=== PATIENT | male | born 1970 | race Caucasian/White ===

== ENCOUNTER 2017-06-21 00:07 | Emergency (ER) | payer BC, OTHER ==
[2017-06-21 00:07] VITALS: BMI 24.4
[2017-06-21 00:30] VITALS: TEMP 98.1
--- NOTE | 2017-06-21 01:30 | ED PDOC ---
HPI: Psych/Substance Abuse Time Seen by Provider: 06/21/17 00:10 Chief Complaint (Nursing): Alcohol Ingestion Chief Complaint (Provider): ETOH ingestion History Per: Patient History/Exam Limitations: no limitations Additional Complaint(s): The patient is a 46yo male, with history of DM, presents to ED for evaluation. Patient reports he was upset earlier so he took "a few" diabetic pills, motrin and drank some beer. Patient is currently calm and cooperative, denies any suicidal ideation or homicidal ideation. He currently offers no additional medical complaints. Past Medical History Reviewed: Historical Data, Nursing Documentation, Vital Signs Vital Signs: Last Vital Signs Temp 98.1 F 06/21/17 00:24 Pulse 89 06/21/17 00:43 Resp 16 06/21/17 00:43 BP 128/85 06/21/17 00:43 Pulse Ox 98 06/21/17 00:43 - Medical History PMH: Diabetes Denies: Chronic Kidney Disease - Surgical History Surgical History: No Surg Hx - Family History Family History: States: Unknown Family Hx - Social History Current smoker - smoking cessation education provided: Yes Alcohol: Occasional - Home Medications Home Medications: Ambulatory Orders Medication Instructions Recorded Multivitamin/Iron/Folic Acid 1 tab PO DAILY 05/19/15 [Centrum] Varenicline [Chantix] 1 mg PO BID 05/19/15 - Allergies Allergies/Adverse Reactions: Allergies Allergy/AdvReac Type Severity Reaction Status Date / Time No Known Allergies Allergy Verified 05/19/15 09:40 Review of Systems ROS Statement: Except As Marked, All Systems Reviewed And Found Negative Psych: Positive for: Other (took diabetic pills, motrin and alcohol). Negative for: Suicidal ideation Physical Exam - Reviewed Nursing Documentation Reviewed: Yes Vital Signs Reviewed: Yes - Physical Exam Appears: Positive for: Well, Non-toxic, No Acute Distress Head Exam: Positive for: ATRAUMATIC, NORMAL INSPECTION, NORMOCEPHALIC Skin: Positive for: Normal Color, Warm, DRY Eye Exam: Positive for: EOMI, Normal appearance, PERRL Neck: Positive for: Normal, Supple Cardiovascular/Chest: Positive for: Regular Rate, Rhythm Respiratory: Positive for: Normal Breath Sounds. Negative for: Respiratory Distress Neurologic/Psych: Positive for: Alert, Oriented - Laboratory Results Result Diagrams: 06/21/17 01:38 08/02/17 01:38 - ECG O2 Sat by Pulse Oximetry: 98 (RA) Pulse Ox Interpretation: Normal Medical Decision Making Medical Decision Making: Time: 99 Impression: ETOH ingestion Plan: -- Bloodwork -- Urinalysis Reassess pt noted to have positive utox for amphetamines and opiates. also etoh level elevated pt reevaluated, denies SI or HI stable for dc, as is stable gait and stabel vitals. pt encouraged to follow up as outpt Scribe Attestation: Documented by Bhavana Acuna acting as a scribe for Roger Lopez MD. Provider Attestation: All medical record entries made by the Scribe were at my direction and personally dictated by me. I have reviewed the chart and agree that the record accurately reflects my personal performance of the history, physical exam, medical decision making, and the department course for this patient. I have also personally directed, reviewed, and agree with the discharge instructions and disposition. Disposition - Clinical Impression Clinical Impression: Alcohol abuse, Polysubstance abuse - Patient ED Disposition Is Patient to be Admitted: No Counseled Patient/Family Regarding: Studies Performed, Diagnosis, Need For Followup - Disposition Disposition: Routine/Home Disposition Time: 16:15 Condition: IMPROVED Additional Instructions: follow up with your primary doctor in 1-2 days return to the ED with any worsening or concerning symptoms Instructions: Polysubstance Abuse (ED) Forms: [facility] (Romans[facility])
[2017-06-21 01:48] LABS: BASO # 0.2 K/uL (0.0-0.2); BASO % 1.7 % (0.0-2.0); EOS # 0.2 K/uL (0.0-0.7); EOS % 1.3 % (0.0-4.0); HEMATOCRIT 44.6 % (35.0-51.0); LYMPH # 1.9 K/uL (1.0-4.3); LYMPH % 16.5 % (20.0-40.0); MEAN CORPUSCULAR HEMOGLOBIN 31.4 pg (27.0-31.0); MEAN CORPUSCULAR HGB CONC 33.4 g/dL (33.0-37.0); MEAN PLATELET VOLUME 10.2 fl (7.2-11.7); MONO # 0.8 K/uL (0.0-0.8); MONO % 6.9 % (0.0-10.0); NEUT # 8.5 K/uL (1.8-7.0); NEUT % 73.6 % (50.0-75.0); NRBC % 0.1 % (0.0-0.0); WHITE BLOOD COUNT 11.6 K/uL (4.8-10.8)
[2017-06-21 01:57] LABS: ALB/GLOB RATIO 1.4 (1.0-2.1); ALCOHOL SERUM 174 mg/dl (0-10); ALKALINE PHOSPHATASE 92 U/L (38-126); ALT/SGPT 91 U/L (21-72); AST/SGOT 76 U/L (17-59); BILIRUBIN,TOTAL 0.7 mg/dl (0.2-1.3); BLOOD UREA NITROGEN 9 mg/dl (9-20); CARBON DIOXIDE 22 mmol/L (22-30); CHLORIDE 102 mmol/L (98-107); GFR AFRICAN-AMERICAN > 60; GLUCOSE,RANDOM 138 mg/dL (75-110); POTASSIUM 3.4 MMOL/L (3.6-5.0); SODIUM 139 mmol/l (132-148); TOTAL PROTEIN 7.9 G/DL (6.3-8.2)
[2017-06-21] MEDS ORDERED: Potassium Chloride 20 mEq ER Tab PO ONE ×2 (05:06→05:14)
[2017-06-21 06:01] LABS: RBC URINE 3 /hpf (0-3); URINE BACTERIA RARE (<OCC); URINE BILIRUBIN NEGATIVE (NEGATIVE); URINE BLOOD NEGATIVE (NEGATIVE); URINE COLOR YELLOW (YELLOW); URINE GLUCOSE (UA) NEG (Normal); URINE KETONE TRACE mg/dL (NEGATIVE); URINE LEUKOCYTE ESTERASE NEG Leu/uL (Negative); URINE PROTEIN NEGATIVE (NEGATIVE); URINE UROBILINOGEN 0.2-1.0 mg/dL (0.2-1.0); WBC URINE 3 /hpf (0-5)
[2017-06-21 06:27] VITALS: BP 121/73; PULSE 83; RESP 17
[2017-06-21 06:48] VITALS: O2SAT 98
== END 2017-06-21 06:27 | disposition home or self-care (01) ==
LOC: H.ER 00:07
DX: F10.10 Alcohol abuse, uncomplicated (principal); E11.9 Type 2 diabetes mellitus without complications; F19.10 Other psychoactive substance abuse, uncomplicated; R11.10 Vomiting, unspecified